=== PATIENT | female | born 1960 | race Caucasian/White ===

== ENCOUNTER 2016-07-29 16:55 | Emergency (ER) | payer OTHER ==
[~2016-07-29] VITALS: Ht 165.1 cm; Wt 62.6 kg
[~2016-07-29 16:55] MED LIST: FLEXERIL10 MG PO; MEDROL DOSEPAK1 PAC PO; VICODIN5-300 PO
--- NOTE | 2016-07-29 18:30 | ED NECK/BACK PAIN COMPLAINT ---
History of Present Illness General Chief Complaint: Low Back Pain/Injury Stated Complaint: LOWER BACK PAIN Source: patient, family, old records Exam Limitations: no limitations Vital Signs & Intake/Output Vital Signs & Intake/Output Vital Signs Date Time Temp Pulse Resp B/P Pulse O2 O2 Flow FiO2 Ox Delivery Rate 07/29 1956 98.1 75 18 107/53 96 Room Air 07/29 1704 98.3 89 16 147/79 100 Room Air ED Intake and Output 07/30 0000 07/29 1200 Intake Total 1000 Output Total Balance 1000 Intake, IV 1000 Patient 138 lb Weight Allergies Coded Allergies: Penicillins (HIVES 07/29/16) Reconcile Medications Cyclobenzaprine HCl 10 MG TABLET 1 TAB PO TID PRN MUSCLE SPASMS (Reported) Oxycodone HCl/Acetaminophen (Percocet 5-325 MG Tablet) 5 MG-325 MG TABLET 1 TAB PO TID PRN PAIN Prednisone (Unknown Strength) TABLET (Unknown Dose) PO AD STEROID (Reported) Triage Note: PT TO ED WITH EXACERBATION OF CHRONIC BACK PAIN. REPORTING SHE SAW HER PCP THIS WEEK FOR SAME AND WAS GIVEN SCRIPTS FOR PREDNISONE AND FLEXERIL. REPORTING SCRIPTS HELPED FOR A SHORT TIME BUT PAIN HAS BEEN INCREASINGLY WORSE OVER PAST TWO DAYS. DENIES ANY NUMBNESS OR TINGLING, DENIES LOSS OF B/B. Triage Nurses Notes Reviewed? yes Onset: Abrupt Duration: week(s): (2), constant, getting worse Timing: recent history Quality/Severity: moderate, severe Location: lumbar spine, paraspinous muscles Radiation: none Method of Injury: unknown Loss of Consciousness: no loss of consciousness Modifying Factors: movement, pain medication, rest Associated Symptoms: DENIES HPI: 56-year-old female with history of chronic back pain, no other medical problems presents emergency room today complaining exacerbation of her lower back pain. The patient states that the pain began around [place] and saw her primary care physician this week for which she was prescribed prednisone and Flexeril which she's been taking with improvement. She states that this evening however the pain became sharp and severe 10 out of 10 nonradiating. No urinary or bowel incontinence or saddle anesthesia trauma or injury no fall. She denies any numbness or tingling in her legs no abdominal pain no urinary symptoms. The patient states that the pain is severe and worse with change in position better at rest (DEANDRA GARRETT,CAN) Past History Travel History Traveled to [place] past 21 day No Medical History Any Pertinent Medical History? see below for history Neurological: NONE EENT: NONE Cardiovascular: NONE Respiratory: NONE Gastrointestinal: NONE Hepatic: NONE Renal: NONE Musculoskeletal: LUMBAR BACK PAIN Psychiatric: NONE Endocrine: NONE Blood Disorders: NONE Cancer(s): NONE Surgical History Surgical History: unobtainable Psychosocial History What is your primary language Kyrgyz Tobacco Use: Current Daily Use Daily Tobacco Use Amount/Type: => 5 Cigarettes daily ETOH Use: occasional use Illicit Drug Use: denies illicit drug use Family History Hx Contributory? No (CAN VASQUEZ) Review of Systems Review of Systems Constitutional: Reports: see HPI. All Other Systems: Reviewed and Negative Comments Review of systems: See HPI, All other systems negative. Constitutional, no chills no fever, no malaise HEENT: No visual changes no sore throat no congestion, Cardiovascular: No chest pain , no palpitation Skin, no rashes, no change in skin Respiratory: No dyspnea no cough no sputum GI: No nausea no vomiting, no diarrhea, no bloating/constipation : No dysuria No hematuria, no frequency, no discharge Muscle skeletal: No joint pain, no joint swelling, back pain, no neck pain, Neurologic: No numbness no headache Psych: No stress Heme/endocrine: No bruising no bleeding Immunology: No lymphadenopathy (CAN VASQUEZ) Physical Exam Physical Exam General Appearance: well developed/nourished, alert, awake, moderate distress Neck: normal inspection, supple Comments: Well-developed well-nourished person in no acute distress HEENT: Normal EENT exam; PERRL, EOMI, HEAD is atraumatic. moist mucous membranes. Neck: Supple, normal range of motion Back: Right sided paralumbar muscle tenderness to palpation no midline tenderness, no CVA tenderness. Full range of motion Cardiovascular: Regular rate and rhythms no murmurs rubs Respiratory: No respiratory distress. Patient speaking in full complete sentences. Breath sounds clear to auscultation bilaterally: NO W/R/R Abdomen: Soft, nontender nondistended, no appreciable organomegaly. Normal bowel sounds. No rebound/guarding, No appreciable enlargement of the abdominal aorta, No ascites. Extremity: No edema, full range of motion of extremities, normal and equal pulses bilaterally, 5 out of 5 strength noted to bilateral upper and lower extremities Neuro: Alert oriented x3, motor sensory normal. There were no obvious focal neurologic abnormalities. Skin: No appreciable rash on exposed skin, skin is warm and dry. Psych: Mood and affect is normal, memory and judgment is normal. (CAN VASQUEZ) Progress Differential Diagnosis: herniated disc, myofascial strain, pyelo/UTI, sciatica, spinal cord inj, T/L spine injury, ureterolithiasis Plan of Care: Orders Procedure Date/time Status URINALYSIS 07/29 1936 Complete [place] Lock 07/29 1834 Active COMPREHENSIVE METABOLIC PANEL 07/29 1834 Complete CBC WITHOUT DIFFERENTIAL 07/29 1834 Complete Laboratory Tests 07/29/162014: Urine Color YEL, Urine Clarity CLEAR, Urine pH 6.0, Ur Specific [place] >= 1.030 , Urine Protein NEG, Urine Ketones NEG, Urine Nitrite NEG, Urine Bilirubin NEG, Urine Urobilinogen 0.2, Ur Leukocyte Esterase NEG, Ur Microscopic EXAM NOT REQUIRED, Urine Hemoglobin NEG, Urine Glucose NEG 07/29/16 184: Anion Gap 14, Estimated GFR > 60, BUN/Creatinine Ratio 30.0 H, Glucose 115 H, Calcium 9.3, Total Bilirubin 0.7, AST 41 H, ALT 39, Alkaline Phosphatase 76, Total Protein 7.5, Albumin 4.3, Globulin 3.2, Albumin/Globulin Ratio 1.3, CBC w Diff NO MAN DIFF REQ, RBC 4.65, MCV 88.1, MCH 29.7, RDW 14.2, MPV 6.8 L, Gran % 68.6, Lymphocytes % 23.3, Monocytes % 6.9, Eosinophils % 0.8, Basophils % 0.4, Absolute Granulocytes 9.6 H, Absolute Lymphocytes 3.3, Absolute Monocytes 1.0 H, Absolute Eosinophils 0.1, Absolute Basophils 0.1, PUBS MCHC 33.7 CAT scans ordered, old records reviewed patient medicated with Dilaudid 1, Toradol 30 IV Valium 2 mg IV 07/29/2016 7:17:59 PM on repeat evaluation patient reports much improvement in her symptoms resting comfortably on the stretcher pending CAT scan and labs 07/29/2016 7:37:23 PM case discussed with and signed out to TAMI Salguero pending CAT scan and urinalysis. Patient is back from CAT scan at this time reports again much relief in her symptoms. (CAN VASQUEZ) Diagnostic Imaging: Viewed by Me: CT Scan. Discussed w/RAD: CT Scan. Hand-Off Endorsed To: BLANCA VAZQUEZ Endorsed Time: 1936 Pending: CT, labs (CAN VASQUEZ) Departure Departure Disposition: HOME OR SELF CARE Condition: Stable Clinical Impression Primary Impression: Low back strain Referrals: RONA MALLOY,BEVERLY Obregon (PCP/Family) Departure Forms: Customer Survey General Discharge Information Prescriptions: Current Visit Scripts Oxycodone HCl/Acetaminophen (Percocet 5-325 MG Tablet) 1 TAB PO TID PRN PAIN #12 TAB (CAN VASQUEZ) Departure Additional Instructions: Follow-up with your primary care physician this week. Continue taking the prednisone and Flexeril as directed. Percocet as needed for breakthrough pain return anytime sooner with any concerns interchange ice and heat. Please go over all results of today's visit with your primary care doctor. Contact your primary care doctor to let them know you were here in the emergency room. There may be nonspecific findings which may not be related to your visit today here in the emergency room but may require further evaluation and chronic monitoring by your primary care doctor. If you had a laceration today the chance of foreign body always remains. You should follow-up with your primary care doctor for recheck in 3-5 days for a wound check. If you had an x-ray done there is a chance that a fracture could have been missed on initial read and you should follow-up with your primary care doctor for repeat x-rays if symptoms persist. If your blood pressure was elevated here in the emergency room please have rechecked by her primary care doctor within the next 48 hours by your primary care doctor. If you were prescribed a narcotic here in the emergency room or any type of controlled substances you're not allowed to drive while taking this medication or operate any type of heavy machinery. Narcotics can make you feel lightheaded dizziness nausea and can cause constipation. You may need to sisal picker a stool softener. Thank you for choosing [facility] emergency room. Please return to the emergency room immediately if you have any other concerns worsening of symptoms. (BLANCA VAZQUEZ) PA/LICENSED MENTAL HEALTH PROFESSIONAL Co-Sign Statement Statement: ED Attending supervision documentation- [] I saw and evaluated the patient. I have also reviewed all the pertinent lab results and diagnostic results. I agree with the findings and the plan of care as documented in the PA's/LICENSED MENTAL HEALTH PROFESSIONAL's documentation. [x] I have reviewed the ED Record and agree with the PA's/LICENSED MENTAL HEALTH PROFESSIONAL's documentation. [] Additions or exceptions (if any) to the PAs/LICENSED MENTAL HEALTH PROFESSIONAL's note and plan are summarized below: [] (MIRYAM MALLOY,ORQUIDEA Bryan)
[2016-07-29 18:54] LABS: ABSOLUTE BASOPHIL COUNT 0.1 /CUMM (0.0-0.2); ABSOLUTE EOSINOPHIL COUNT 0.1 /CUMM (0.0-0.7); ABSOLUTE GRANULOCYTE CT 9.6 /CUMM (1.4-6.5); ABSOLUTE LYMPH COUNT 3.3 /CUMM (1.2-3.4); BASOPHIL % 0.4 % (0.0-2.0); EOSINOPHIL % 0.8 % (0-5); GRANULOCYTE % 68.6 % (42.2-75.2); MEAN CORPUSCULAR HGB 29.7 PG (27.0-31.0); MEAN CORPUSCULAR HGB CONC 33.7 G/DL (33.0-37.0); MEAN CORPUSCULAR VOLUME 88.1 FL (81.0-99.0); MEAN PLATELET VOLUME 6.8 FL (7.4-10.4); PLATELET COUNT 379 /CUMM (130-400); RBC DISTRIBUTION WIDTH 14.2 % (11.5-14.5); RED BLOOD CELL CT 4.65 /CUMM (4.20-5.40)
[2016-07-29] MEDS ORDERED: PERCOCET 5-3251 EACH PO (19:38)
[2016-07-29] MEDS ORDERED: CYCLOBENZAPRINE10 M1 PO (19:42)
[2016-07-29] MEDS ORDERED: PREDNISONE20 M1 PO (19:43)
[2016-07-29 19:57] VITALS: BP 107/53
--- NOTE | 2016-07-29 19:58 | CT SCAN REPORT ---
EXAMINATION: CT LUMBAR SPINE WITHOUT CONTRAST CLINICAL INFORMATION: Right lower back pain. COMPARISON: Prior MRI dated 08/03/2009. TECHNIQUE: Helical non-contrast CT images were obtained through the lumbar spine and 1.25 and 2.5 mm axial reconstructions were reviewed along with sagittal and coronal MPRs. DLP: 327.48 mGy-cm FINDINGS: No pathologic lytic lesions are seen. There is a mild rightward curvature of the mid lumbar spine. There is a small bone island in the right sacral ala. Mild degenerative changes affect the SI joints. Small endplate Schmorl's nodes are noted at various levels. There is mild disc space narrowing at L5-S1 without change. Mild atherosclerotic calcification is noted in the abdominal aorta without aneurysmal dilatation. SPINAL LEVELS: L1-L2: Minimal annular bulge. No central canal stenosis or foraminal narrowing. L2-L3: Very mild disc bulge. No central canal stenosis or foraminal encroachment. L3-L4: Mild loss of disc height and generalized disc bulge with mild facet arthropathy. No central canal stenosis or foraminal narrowing. L4-L5: Mild loss of disc height and concentric disc bulge with moderate left-sided facet arthropathy. No central canal stenosis or significant foraminal narrowing. L5-S1: Mild to moderate loss of disc height, more so posteriorly with a broad-based posterior disc bulge mildly impressing upon the ventral thecal sac. No central canal stenosis. Mild right foraminal narrowing. IMPRESSION: Stable mild to moderate spondylosis when compared to previous imaging. Mild rightward curvature of the mid lumbar spine. Mild disc bulges and hypertrophic facet arthropathy, most significant at L4-L5 on the left side.
== END 2016-07-29 21:01 ==
LOC: ERH 16:55
PROVIDERS: Physician Assistant Medical
DX: S39.012A Strain of muscle, fascia and tendon of lower back, initial encounter (principal); X58.XXXA Exposure to other specified factors, initial encounter
CPT/HCPCS: 81003; 96374; 96375; J1885; J3360

== ENCOUNTER 2018-03-20 13:21 | Emergency (ER) | payer OTHER ==
[~2018-03-20] VITALS: Ht 162.6 cm; Wt 63.5 kg
[~2018-03-20 13:21] MED LIST changes: +CYCLOBENZAPRINE10 M1 PO; +PERCOCET 5-3251 EACH PO; +PREDNISONE20 M1 PO
--- NOTE | 2018-03-20 15:11 | ED GENERAL ADULT ---
History of Present Illness General Chief Complaint: Low Back Pain/Injury Stated Complaint: CHRONIC LOWER BACK PAIN, RASH Source: patient Exam Limitations: no limitations Vital Signs & Intake/Output Vital Signs & Intake/Output Vital Signs Date Time Temp Pulse Resp B/P B/P Pulse O2 O2 Flow FiO2 Mean Ox Delivery Rate 03/20 1534 98.8 77 18 123/63 99 03/20 1336 98.5 77 18 125/69 96 Room Air Allergies Coded Allergies: Penicillins (HIVES 07/29/16) Reconcile Medications Cyclobenzaprine HCl 10 MG TABLET 1 TAB PO TID PRN MUSCLE SPASMS (Reported) Lidocaine (Lidoderm) 5 % ADH..PATCH 1 PAT TOP DAILY PRN pain may wear up to 12 hours Methylprednisolone. (Medrol) 4 MG TAB.DS.PK 1 DP PO AD back pain 6 on day 1 then reduce by one tablet daily until gone Naproxen (Naprosyn) 500 MG TABLET 1 TAB PO BID PRN pain Oxycodone HCl/Acetaminophen (Percocet 5-325 MG Tablet) 5 MG-325 MG TABLET 1 TAB PO TID PRN PAIN Prednisone (Unknown Strength) TABLET (Unknown Dose) PO AD STEROID (Reported) Triage Note: RECEIVED 57 YO FEMALE C/O MID LOWER BACK PAIN X ONE WEEK, WORSE WITH ALLL MOVEMENT. NO C/O NUMBNESS OR TINGLING TO LEGS. NO INJURY NOTED. Triage Nurses Notes Reviewed? yes Onset: Gradual Duration: day(s): Timing: constant HPI: 57-year-old female with a history of chronic lower back pain presenting with acute on chronic lower back pain 1 week. Patient reports mid lower back pain that does not radiate, is worse with movement. Denies any injury or strenuous activity. She had a CT lumbar spine done 1 year ago that showed "Stable mild to moderate spondylosis when compared to previous imaging. Mild rightward curvature of the mid lumbar spine. Mild disc bulges and hypertrophic facet arthropathy, most significant at L4-L5 on the left side." Patient reports that her pain is usually well controlled with [id number] NSAIDs when it flares up. She has been recently using ibuprofen with only mild relief. Pain has been getting progressively worse and it is now difficult for her to ambulate or walk up and down steps. Denies numbness/paresthesias to the lower extremities, fevers, IV drug use, saddle anesthesia, urinary/bowel incontinence/retention, dysuria. Of note patient also had a localized rash to her right flank 4 days ago that has since self resolved. She states that she thinks it may have been shingles. She has pictures on her phone. The pictures on her phone show a nonspecific annular erythematous area with no vesicles. Denies fevers or drainage. (Viry Turner) Past History Travel History Traveled to [place] past 21 day No Medical History Any Pertinent Medical History? see below for history Neurological: NONE EENT: NONE Cardiovascular: NONE Respiratory: NONE Gastrointestinal: NONE Hepatic: NONE Renal: NONE Musculoskeletal: LUMBAR BACK PAIN Psychiatric: NONE Endocrine: NONE Blood Disorders: NONE Cancer(s): NONE Surgical History Surgical History: unobtainable Psychosocial History What is your primary language Syrian Tobacco Use: Current Daily Use Daily Tobacco Use Amount/Type: => 5 Cigarettes daily Family History Hx Contributory? No (Viry Turner) Review of Systems Review of Systems Constitutional: Reports: no symptoms. EENTM: Reports: no symptoms. Respiratory: Reports: no symptoms. Cardiovascular: Reports: no symptoms. GI: Reports: no symptoms. Genitourinary: Reports: no symptoms. Musculoskeletal: Reports: see HPI. Skin: Reports: no symptoms. Neurological/Psychological: Reports: no symptoms. Hematologic/Endocrine: Reports: no symptoms. Immunologic/Allergic: Reports: no symptoms. All Other Systems: Reviewed and Negative (Viry Turner) Physical Exam Physical Exam General Appearance: well developed/nourished, no apparent distress, alert, awake Comments: Gen.: Well-nourished, well-developed, no acute distress. Head: Normocephalic, atraumatic. Eyes: Normal inspection bilaterally Ears: Normal inspection bilaterally Nose: Normal inspection Neck: Normal inspection Lungs: clear to auscultation bilaterally, normnal breath sounds Heart: regular rate and rhythm Abdomen: soft and non-tender Back: Normal inspection, tender to palpation over the mid lower lumbar spine, decrease in spinal range of motion Extremities: Normal inspection, bilateral lower extremities are neurovascularly intact Neurologic: alert and oriented x3, patient is able to bear weight and ambulate with a steady gait Skin: warm and dry Psychiatric: Normal mood and affect, no apparent delusions or hallucinations, behavior appropriate Core Measures ACS in differential dx? No CVA/TIA Diagnosis: No Sepsis Present: No Sepsis Focused Exam Completed? No (Viry Turner) Progress Differential Diagnoses I considered the following diagnoses in my evaluation of the patient: [MSK strain versus disc herniation versus osteoarthritis versus compression fracture, will concern for cauda equina versus epidural abscess versus UTI] Plan of Care: Orders Procedure Date/time Status XRY-LUMBOSACRAL SPINE 4 VIEWS 03/20 1452 Active X-ray IMPRESSION: - Chronic, mild, multilevel discovertebral degenerative changes of the lumbar spine. - Facet osteoarthritis of L4-L5 and L5-S1. - No fracture or malalignment. No acute findings compared to 07/29/2016. Patient reports moderate pain relief after Toradol, site Medrol, and Lidoderm patch. Likely with MSK etiology for her back pain. Counseled on supportive care and will give Rx naproxen, Lidoderm patches, and Medrol Dosepak. Given strict return precautions and will follow up with her PMD. Initial ED EKG: none (Viry Turner) Differential Diagnoses I considered the following diagnoses in my evaluation of the patient: (Rufino DANG,Gerard Fernandez) Departure Departure Disposition: HOME OR SELF CARE Condition: Stable Clinical Impression Primary Impression: Back pain Referrals: Charity MALLOY,Laura Obregon (PCP/Family) Additional Instructions: Use naproxen and Lidoderm patches as needed for pain. Take Medrol Dosepak as prescribed. Follow-up with your primary care provider for reevaluation. Return to the emergency department for any new or worsening symptoms. Departure Forms: Customer Survey General Discharge Information Prescriptions: Current Visit Scripts Naproxen (Naprosyn) 1 TAB PO BID PRN pain #60 TAB Methylprednisolone. (Medrol) 1 DP PO AD #1 DP 6 on day 1 then reduce by one tablet daily until gone Lidocaine (Lidoderm) 1 PAT TOP DAILY PRN pain #30 PAT may wear up to 12 hours (Viry Turner) PA/ACCOUNT MANAGER SALES REPRESENTATIVE Co-Sign Statement Statement: ED Attending supervision documentation- [] I saw and evaluated the patient. I have also reviewed all the pertinent lab results and diagnostic results. I agree with the findings and the plan of care as documented in the PA's/ACCOUNT MANAGER SALES REPRESENTATIVE's documentation. [X] I have reviewed the ED Record and agree with the PA's/ACCOUNT MANAGER SALES REPRESENTATIVE's documentation. [] Additions or exceptions (if any) to the PAs/ACCOUNT MANAGER SALES REPRESENTATIVE's note and plan are summarized below: [] (Rufino DANG,Gerard Fernandez) Critical Care Note Critical Care Note Critical Care Time: non-applicable (Mary GARRETT,Viry)
[2018-03-20 15:34] VITALS: BP 123/63
--- NOTE | 2018-03-20 15:38 | RADIOLOGY REPORT ---
EXAMINATION: XR LUMBOSACRAL SPINE CLINICAL INFORMATION: Pain. COMPARISON: CT of lumbar spine, 07/29/2016. TECHNIQUE: 4 views of the lumbosacral spine were obtained. FINDINGS: No acute findings compared to 07/29/2016. Mild rotatory dextrocurvature of the degenerated lumbar spine. The vertebral bodies have normal height and alignment. No evidence of spondylolysis, spondylolisthesis or vertebral compression fracture. There is mild, multilevel degenerative disc space narrowing and traction osteophyte formation of the lumbar spine. There is chronic facet osteoarthritis at L4-L5 and L5-S1. The sacrum and sacroiliac joints are intact. No suspicious lytic or osteoblastic lesion. IMPRESSION: - Chronic, mild, multilevel discovertebral degenerative changes of the lumbar spine. - Facet osteoarthritis of L4-L5 and L5-S1. - No fracture or malalignment. No acute findings compared to 07/29/2016.
[2018-03-20] MEDS ORDERED: NAPROSYN500 M1 PO (16:01)
[2018-03-20] MEDS ORDERED: MEDROL4 M2 PO (16:01)
[2018-03-20] MEDS ORDERED: LIDODERM1 EACH TOP (16:01)
== END 2018-03-20 16:10 ==
LOC: ERH 13:21
DX: M54.5 Low back pain (principal); F17.210 Nicotine dependence, cigarettes, uncomplicated
CPT/HCPCS: 72110; 96372; J1885; J2930